=== PATIENT | female | born 1940 | race Caucasian/White ===

== ENCOUNTER 2022-10-08 19:11 | Emergency (ER) | payer MEDICARE, OTHER ==
[~2022-10-08] VITALS: Ht 167.6 cm; Wt 79.0 kg
[2022-10-08] MEDS ORDERED: ADULT ASPIRIN R81 MG PO (19:52)
[2022-10-08] MEDS ORDERED: LAMICTAL XR300 MG PO (19:53)
[2022-10-08] MEDS ORDERED: NORVASC10 MG PO (19:53)
[2022-10-08] MEDS ORDERED: SYNTHROID88 MCG PO (19:54)
[2022-10-08] MEDS ORDERED: NEURONTIN300 MG PO (19:54)
--- OUTSIDE RECORDS SUMMARY | 2022-10-08 20:20 | XMS ---
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 Luann VISIT COUNT (12 MO.) 1 [facility] 3 [facility] 1 [facility]re[facility] TOTAL 5 NOTE: Visits indicate total known visits. ED/UCC VISIT TRACKING (12 MO.) 10/08/2022 19:12 [facility] TYPE: Emergency COMPLAINT: - HEAD INJURY 09/30/2022 22:40 [facility] TYPE: Emergency DIAGNOSES: - Weakness - Extremity Weakness - Bilateral weakness 09/19/2022 11:38 [facility] TYPE: Emergency DIAGNOSES: - L side numbness, tingling, - Transient cerebral ischemic attack, unspecified - Numbness 12/14/2021 18:42 [facility] TYPE: Emergency DIAGNOSES: - Possible cracked ribs from coughing - Rib Pain - Other chest pain - Pain in thoracic spine 11/23/2021 19:18 [facility] TYPE: Emergency DIAGNOSES: - Other symptoms and signs involving the musculoskeletal system - EMS; Code 3 Stroke; ED04 - Extremity Weakness INPATIENT VISIT TRACKING (12 MO.) 05/02/2022 06:50 [facility] TYPE: Surgery DIAGNOSES: - Colles' fracture of left radius, initial encounter for closed fracture - Malignant neoplasm of right kidney, except renal pelvis - Other nonspecific abnormal finding of lung field [email or web address]
== END 2022-10-08 21:05 | disposition home or self-care (01) ==
LOC: ED 19:11
DX: S01.01XA Laceration without foreign body of scalp, initial encounter (principal); S60.221A Contusion of right hand, initial encounter; Z23 Encounter for immunization; Z79.899 Other long term (current) drug therapy; Z79.82 Long term (current) use of aspirin; W10.9XXA Fall (on) (from) unspecified stairs and steps, initial encounter
CPT/HCPCS: 70450; 73130; 90471; 90714; 99283-25